=== PATIENT | male | born 1945 | race Caucasian/White ===

== ENCOUNTER → 2018-01-24 | Outpatient (REF) | payer OTHER ==
[2018-01-24 14:07] LABS: APPEARANCE, URINE CLEAR (CLEAR); BACTERIA, URINE AUTO 1+ (NEGATIVE); BILIRUBIN, URINE AUTO NEGATIVE (NEGATIVE); BLOOD, URINE BLOOD NEGATIVE (NEGATIVE); COLOR, URINE YELLOW (YELLOW); GLUCOSE, URINE (UA) AUTO NEGATIVE (NEGATIVE); KETONE, URINE AUTO TRACE mg/dL (NEGATIVE); LEUKOCYTE ESTERASE, URINE AUTO NEGATIVE (NEGATIVE); MUCUS, URINE SMALL (NEGATIVE); NITRITE, URINE AUTO NEGATIVE (NEGATIVE); PROTEIN, URINE AUTO 1+ mg/dL (NEGATIVE); RBC, URINE AUTO 0 /HPF (0-3); SPECIFIC GRAVITY URINE AUTO 1.015 (1.002-1.035); SQUAMOUS EPITHELIAL CELL UR AU 0 /HPF (0-6); WBC, URINE AUTO 1 /HPF (0-3)
== END ==
LOC: M SMT 13:14
DX: R10.30 Lower abdominal pain, unspecified (principal)
CPT/HCPCS: 81001

== ENCOUNTER → 2019-06-13 | Outpatient (CLI) | payer MEDICARE ==
--- NOTE | 2019-06-13 10:04 | REP ---
Clinical: Symptoms related to atherosclerotic disease and intermittent claudication. Technique: Real time delcid scale and color Doppler evaluation of the bilateral lower extremity arterial vasculature using linear high frequency transducer. Findings: Delcid scale and color images demonstrate mild to moderate amounts of mixed atheromatous plaquing without focal stenosis or occlusion identified. Doppler interrogation demonstrates biphasic arterial wave forms bilaterally. Peak systolic velocities (cm/sec) RIGHT LEFT KORIN 0.97 0.90 Common femoral artery 122.2 120.0 Profunda femoris 57.8 70.0 SFA (proximal) 111.3 94.3 SFA (mid) 196.2 138.0 SFA (distal) 100.0 120.0 Popliteal artery 107.0 83.1 LEONELA (prox.) 45.3 67.2 Tibioperoneal trunk 63.9 48.0 BAND CUTTING MACHINE OPERATOR (prox.) 76.0 45.0 BAND CUTTING MACHINE OPERATOR (distal) 50.6 50.0 LEONELA (distal) 47.4 42.6 Impression: Atheromatous changes without obvious areas of stenosis or occlusion. Electronically Signed by Edis Pena MD 06/13/2019 09:56 A
== END ==
LOC: M RAD 08:41
PROVIDERS: ATTEND Physician Assistant
DX: M79.605 Pain in left leg (principal); M79.604 Pain in right leg

== ENCOUNTER → 2022-02-27 | Outpatient (REF) | payer MEDICARE ==
[~2022-02-27] MED LIST: ALBU8.5H INH; AMLO1TAB25 PO; ATOR40TA75 PO; BASA100I SQ; CETI-24 PO; DILT180C70 PO; ECOT81TA5 PO; FERR325T19 PO; FINA5TAB2 PO; FLUTISP INH; LEVO150T7 PO; LISI2.5T9 PO; MAGN400T33 PO; METF-838 PO; METO100T7 PO; OMEP40CA5 PO; POTA1TAB23 PO; TAMS1CAP17 PO; VICT18IN2 SQ
[2022-02-27 19:39] LABS: MALB URINE SIEMENS 14.4 MG/L; MAU/CREAT RATIO 11.8 MCG/MG (0.0-30.0)
== END ==
LOC: M LAB REF 18:46
PROVIDERS: ATTEND Nurse Practitioner Family
DX: E11.65 Type 2 diabetes mellitus with hyperglycemia (principal)

== ENCOUNTER → 2022-03-01 | Outpatient (REF) | payer MEDICARE ==
[2022-03-01 13:38] LABS: APPEARANCE, URINE CLEAR (CLEAR); BACTERIA, URINE AUTO 1+ (NEGATIVE); BILIRUBIN, URINE AUTO NEGATIVE (NEGATIVE); BLOOD, URINE BLOOD NEGATIVE (NEGATIVE); COLOR, URINE YELLOW (YELLOW); GLUCOSE, URINE (UA) AUTO NEGATIVE (NEGATIVE); KETONE, URINE AUTO NEGATIVE (NEGATIVE); LEUKOCYTE ESTERASE, URINE AUTO NEGATIVE (NEGATIVE); MUCUS, URINE SMALL (NEGATIVE); NITRITE, URINE AUTO NEGATIVE (NEGATIVE); PROTEIN, URINE AUTO NEGATIVE (NEGATIVE); RBC, URINE AUTO 0 /HPF (0-3); SPECIFIC GRAVITY URINE AUTO 1.008 (1.002-1.035); SQUAMOUS EPITHELIAL CELL UR AU 1 /HPF (0-6); UROBILINOGEN, URINE AUTO 0.2 mg/dL (0.0-2.0); WBC, URINE AUTO 0 /HPF (0-3)
== END ==
LOC: M SMT 12:49
PROVIDERS: ATTEND Urology
DX: N40.0 Benign prostatic hyperplasia without lower urinary tract symptoms (principal)
CPT/HCPCS: 51798; 81001; G0463

== ENCOUNTER → 2022-04-11 | Outpatient (REF) | payer MEDICARE ==
[2022-04-11 17:30] LABS: APPEARANCE, URINE CLEAR (CLEAR); BACTERIA, URINE AUTO NEGATIVE (NEGATIVE); BILIRUBIN, URINE AUTO NEGATIVE (NEGATIVE); BLOOD, URINE BLOOD NEGATIVE (NEGATIVE); COLOR, URINE YELLOW (YELLOW); GLUCOSE, URINE (UA) AUTO NEGATIVE (NEGATIVE); KETONE, URINE AUTO NEGATIVE (NEGATIVE); LEUKOCYTE ESTERASE, URINE AUTO NEGATIVE (NEGATIVE); NITRITE, URINE AUTO NEGATIVE (NEGATIVE); PROTEIN, URINE AUTO NEGATIVE (NEGATIVE); RBC, URINE AUTO 0 /HPF (0-3); SPECIFIC GRAVITY URINE AUTO 1.013 (1.002-1.035); SQUAMOUS EPITHELIAL CELL UR AU 0 /HPF (0-6); UROBILINOGEN, URINE AUTO 0.2 mg/dL (0.0-2.0); WBC, URINE AUTO 1 /HPF (0-3)
== END ==
LOC: M SMT 16:44
PROVIDERS: ATTEND Urology
DX: N40.0 Benign prostatic hyperplasia without lower urinary tract symptoms (principal)

== ENCOUNTER → 2022-04-24 | Outpatient (CLI) | payer MEDICARE ==
[~2022-04-24] MED LIST changes: +E-Z-GAS II EFFERVESCENT PACKET (SODIUM BICARB./CITRIC ACID/SIMETHICONE) As Ordered ONE; +E-Z-HD 98% w/w 340GM SUSP BTL As Ordered ONE; +E-Z-PAQUE 96% w/w SUSP 176GM BTL As Ordered ONE
== END ==
LOC: M RAD 08:58
PROVIDERS: ATTEND Physician Assistant
DX: K92.9 Disease of digestive system, unspecified (principal); F17.200 Nicotine dependence, unspecified, uncomplicated; K21.9 Gastro-esophageal reflux disease without esophagitis

== ENCOUNTER → 2022-05-23 | Outpatient (CLI) | payer MEDICARE ==
[~2022-05-23] MED LIST changes: -E-Z-GAS II EFFERVESCENT PACKET (SODIUM BICARB./CITRIC ACID/SIMETHICONE) As Ordered ONE; -E-Z-HD 98% w/w 340GM SUSP BTL As Ordered ONE; -E-Z-PAQUE 96% w/w SUSP 176GM BTL As Ordered ONE
== END ==
LOC: M RAD 09:06
PROVIDERS: ATTEND Physician Assistant
DX: M89.9 Disorder of bone, unspecified (principal); E83.42 Hypomagnesemia
CPT/HCPCS: 78306; A9503

== ENCOUNTER → 2023-02-28 | Outpatient (REF) | payer MEDICARE ==
[~2023-02-28] MED LIST changes: +FLUT50SP17 INH; -FLUTISP INH
[2023-02-28 18:23] LABS: CREATININE, URINE 24.7 MG/DL; MALB URINE SIEMENS < 3.0 MG/L; MAU/CREAT RATIO 12.1 MCG/MG (0.0-30.0)
== END ==
LOC: M LAB REF 16:49
PROVIDERS: ATTEND Nurse Practitioner Family
DX: E11.65 Type 2 diabetes mellitus with hyperglycemia (principal)

== ENCOUNTER 2024-02-04 18:19 | Inpatient (IN) | payer MEDICARE ==
[~2024-02-04] VITALS: Ht 167.6 cm; Wt 77.4 kg
[~2024-02-04 18:19] MED LIST changes: -FLUT50SP17 INH; +FLUTISP INH; +VICT18IN2 SC; -VICT18IN2 SQ
[2024-02-04 22:15] VITALS: BP 280/104; TEMP 97.6; O2SAT 92
[2024-02-04 23:15] VITALS: BP 208/79
[2024-02-05] VITALS (8 sets, daily range): BP systolic 150–280; BP diastolic 68–107; TEMP 97.2–97.9; O2SAT 91–96
[2024-02-05] MEDS ORDERED: DEXTROSE 50% 50ML SYRINGE IV PRN (00:05)
[2024-02-05] MEDS ORDERED: GLUCOSE 4GM CHEW TABLET PO PRN (00:05)
[2024-02-05] MEDS ORDERED: GLUCAGON INJ 1MG VIAL SC PRN (00:05)
[2024-02-05] MEDS: INSULIN LISPRO (NovoLOG) PER UNIT SC SCH ×2 (00:24→08:54)
[2024-02-05] MEDS ORDERED: IPRATROPIUM 0.5MG/ALBUTEROL 2.5MG INH SOL UD 3ML (DUONEB) NEB PRN (00:55)
[2024-02-05 01:31] LABS: ABG BASE EXCESS 2.5 (-2.0-2.0); ABG HCO3 25.8 MMOL/L (22.0-26.0); ABG STANDARD HCO3 26.6 MMOL/L. (22.0-26.0); ABG pH (ARTERIAL) 7.474 UNITS (7.350-7.450)
[2024-02-05] MEDS: IPRATROPIUM 0.5MG/ALBUTEROL 2.5MG INH SOL UD 3ML (DUONEB) NEB SCH (02:00)
[2024-02-05] MEDS ORDERED: PILL CUTTER 1 EACH XX PRN (02:15)
[2024-02-05] MEDS: LABETALOL 100MG TAB PO STA (02:24)
[2024-02-05] MEDS: **hydrALAZINE HCL** 25 MG TAB PO STA (04:48)
[2024-02-05] MEDS ORDERED: VITA100093 PO (06:54)
[2024-02-05] MEDS ORDERED: ASPI-615 PO (06:54)
[2024-02-05] MEDS ORDERED: POTA-150 PO (06:54)
[2024-02-05] MEDS ORDERED: MAGN1TAB26 PO (06:54)
[2024-02-05] MEDS ORDERED: OYST500T92 PO (06:54)
[2024-02-05] MEDS ORDERED: DILT0.05 PO (06:54)
[2024-02-05] MEDS ORDERED: FAMO20TA PO (06:54)
[2024-02-05] MEDS ORDERED: VITA-172 PO (06:54)
[2024-02-05] MEDS ORDERED: NYST-13 EXT (06:54)
[2024-02-05] MEDS ORDERED: FLOM0.4C39 PO (06:54)
[2024-02-05] MEDS ORDERED: FURO20TA2 PO (06:54)
[2024-02-05] MEDS ORDERED: METF-839 PO (06:54)
[2024-02-05] MEDS ORDERED: HOME MED LIST COMPLETE! XX SCH (06:55)
[2024-02-05 08:41] LABS: BLOOD UREA NITROGEN 16 MG/DL (9-23); CALCIUM LEVEL 9.3 MG/DL (8.3-10.6); CARBON DIOXIDE LEVEL 28 MMOL/L (20-31); CHLORIDE LEVEL 100 MMOL/L (98-107); CREATININE FOR GFR 0.75 MG/DL (0.70-1.30); GLOMERULAR FILTRATION RATE > 60.0 (>42); GLUCOSE, FASTING 118 MG/DL (74-106); POTASSIUM SERUM 3.5 MMOL/L (3.5-5.1); SODIUM LEVEL 134 MMOL/L (136-145)
[2024-02-05] MEDS: HEPARIN SOD (PORCINE) 5000UNITS/ML 1ML VIAL/SYRINGE SC SCH (08:54)
[2024-02-05] MEDS: NICOTINE 21MG/24HR 1 EA TRANSDERMAL TD SCH (08:55)
[2024-02-05] MEDS: ATORVASTATIN 20 MG TAB PO SCH (11:52)
[2024-02-05] MEDS: ASPIRIN 81MG ENTERIC TABLET PO SCH (11:52)
[2024-02-05] MEDS: METOPROLOL SUCC (TopROL XL) 100MG *XL* TAB PO SCH (11:53)
[2024-02-05] MEDS: FUROSEMIDE 100MG/10ML VIAL IV ONE (11:53)
[2024-02-05] MEDS: FINASTERIDE 5MG TAB PO SCH (11:57)
[2024-02-05] MEDS: LISINOPRIL *2.5 MG* TAB PO SCH (14:04)
[2024-02-05] MEDS: LORazepam 2 MG/ML 1ML VIAL IV ONE (14:05)
[2024-02-05] MEDS: **hydrALAZINE HCL** 25 MG TAB PO SCH (14:05)
[2024-02-05 17:23] LABS: CHOLESTEROL LEVEL 120 MG/DL (<200); CHOLESTEROL RISK RATIO 3.56 (<5); HDL CHOLESTEROL 33.7 MG/DL (>40); LDL CHOLESTEROL 62.5 MG/DL (<100); NON-HDL-C 86.3 MG/DL; TRIGLYCERIDES LEVEL 119 MG/DL (<150)
[2024-02-05 17:42] LABS: HEMOGLOBIN A1c 6.1 % (4.0-6.0)
[2024-02-05] MEDS: TAMSULOSIN 0.4 MG CAP PO SCH (21:44)
[2024-02-05] MEDS: dilTIAZem **CD** 180MG CAP PO SCH (21:45)
[2024-02-05] MEDS: APIXABAN 5 MG TAB (ELIQUIS) PO SCH (21:45)
[2024-02-05] MEDS: NYSTATIN 100,000 UNITS/GM TOPICAL PWD 15GM TOP SCH (21:45)
[2024-02-05] MEDS: FAMOTIDINE 20 MG TAB PO SCH (21:45)
[2024-02-05] MEDS: LEVEMIR (INSULIN DETEMIR) 1 UNITS/0.01ML SC SCH (21:51)
[2024-02-06] VITALS (7 sets, daily range): BP systolic 119–218; BP diastolic 50–90; TEMP 97.2–98.4; O2SAT 93–98
[2024-02-06] MEDS ORDERED: ELIQ5TAB PO (11:09)
[2024-02-06] MEDS ORDERED: NICO21PAT TD (11:10)
[2024-02-06] MEDS ORDERED: LISI10TA22 PO (11:12)
[2024-02-06 14:12] LABS: BASO # 0.1 10^3/uL (0.0-0.2); BASO % 0.9 % (0.0-1.0); EOS # 0.5 10^3/uL (0.0-0.5); EOS % 3.1 % (0.0-3.0); HEMATOCRIT 43.4 % (42.0-52.0); HEMOGLOBIN 14.4 g/dl (13.5-17.5); LYMPH # 2.5 10^3/uL (1.5-5.0); LYMPH % 16.5 % (24.0-44.0); MEAN CORPUSCULAR HEMOGLOBIN 29.6 pg (27.0-33.0); MEAN CORPUSCULAR HGB CONC 33.2 g/dl (32.0-36.5); MEAN CORPUSCULAR VOLUME 89.3 fl (80.0-96.0); MONO # 1.4 10^3/uL (0.0-0.8); NEUTROPHILS # 10.6 10^3/uL (1.5-8.5); NEUTROPHILS % 69.8 % (36.0-66.0); PLATELET COUNT, AUTOMATED 487 10^3/uL (150-450); RED BLOOD COUNT 4.86 10^6/uL (4.30-6.10); WHITE BLOOD COUNT 15.2 10^3/uL (4.0-10.0)
[2024-02-06 14:20] LABS: ERYTHROCYTE SEDIMENTATION RATE 11 mm/hr (0-20)
[2024-02-06 14:39] LABS: C REACTIVE PROTEIN QUANTITATIV 0.5 MG/DL (<1.0)
[2024-02-06 14:48] LABS: PROCALCITONIN 0.06 ng/ml
[2024-02-07] VITALS (8 sets, daily range): BP systolic 134–242; BP diastolic 52–90; TEMP 97–97.8; O2SAT 92–100
[2024-02-07 13:41] LABS: BASO # 0.1 10^3/uL (0.0-0.2); BASO % 0.9 % (0.0-1.0); EOS # 0.3 10^3/uL (0.0-0.5); EOS % 2.1 % (0.0-3.0); HEMATOCRIT 42.8 % (42.0-52.0); HEMOGLOBIN 14.2 g/dl (13.5-17.5); LYMPH # 2.4 10^3/uL (1.5-5.0); LYMPH % 18.2 % (24.0-44.0); MEAN CORPUSCULAR HEMOGLOBIN 29.4 pg (27.0-33.0); MEAN CORPUSCULAR HGB CONC 33.2 g/dl (32.0-36.5); MEAN CORPUSCULAR VOLUME 88.6 fl (80.0-96.0); MONO # 1.2 10^3/uL (0.0-0.8); MONO % 8.7 % (2.0-8.0); NEUTROPHILS # 9.2 10^3/uL (1.5-8.5); NEUTROPHILS % 69.4 % (36.0-66.0); PLATELET COUNT, AUTOMATED 445 10^3/uL (150-450); RED BLOOD COUNT 4.83 10^6/uL (4.30-6.10); WHITE BLOOD COUNT 13.3 10^3/uL (4.0-10.0)
[2024-02-07 13:50] LABS: ERYTHROCYTE SEDIMENTATION RATE 9 mm/hr (0-20)
[2024-02-07 14:08] LABS: C REACTIVE PROTEIN QUANTITATIV < 0.40 MG/DL (<1.0)
[2024-02-07 14:14] LABS: PROCALCITONIN 0.06 ng/ml
[2024-02-07] MEDS: LOSARTAN 25 MG TAB PO SCH (20:41)
[2024-02-07] MEDS: RAMELTEON 8 MG TAB (ROZEREM) PO STA (20:41)
[2024-02-07] MEDS: diphenhydrAMINE 25MG CAP PO STA (20:42)
[2024-02-08 04:06] VITALS: BP 107/51; TEMP 97; O2SAT 94
[2024-02-08 08:16] VITALS: BP 142/64; TEMP 97.2; O2SAT 94
[2024-02-08 08:26] VITALS: BP 142/64
[2024-02-08] MEDS ORDERED: LOSA25TA13 PO (13:21)
[2024-02-08] MEDS ORDERED: ELIQ5TAB PO (13:57)
[2024-02-08] MEDS ORDERED: NICO21PAT TD (13:57)
== END 2024-02-08 13:57 | disposition home or self-care (01) | DRG 56 ==
LOC: M MS5PR 23:04 → M PCU 02-07 08:36
PROVIDERS: ADMIT Internal Medicine; ATTEND General Practice
PROC: B246ZZZ Ultrasonography of Right and Left Heart (ICD-10-PCS; principal; 2024-02-06)
DX: G31.09 Other frontotemporal neurocognitive disorder (principal); I63.81 Other cerebral infarction due to occlusion or stenosis of small artery; J44.1 Chronic obstructive pulmonary disease with (acute) exacerbation; Z66 Do not resuscitate; I48.0 Paroxysmal atrial fibrillation; E78.5 Hyperlipidemia, unspecified; I10 Essential (primary) hypertension; D48.19 Other specified neoplasm of uncertain behavior of connective and other soft tissue; F02.80 Dementia in other diseases classified elsewhere, unspecified severity, without behavioral disturbance, psychotic disturbance, mood disturbance, and anxiety; I16.0 Hypertensive urgency; E11.9 Type 2 diabetes mellitus without complications; D64.9 Anemia, unspecified; E03.9 Hypothyroidism, unspecified; R44.1 Visual hallucinations; N40.0 Benign prostatic hyperplasia without lower urinary tract symptoms; H26.9 Unspecified cataract; F17.210 Nicotine dependence, cigarettes, uncomplicated; Z71.6 Tobacco abuse counseling; Z79.82 Long term (current) use of aspirin; Z79.4 Long term (current) use of insulin; Z79.890 Hormone replacement therapy; Z79.84 Long term (current) use of oral hypoglycemic drugs; Z79.899 Other long term (current) drug therapy

== ENCOUNTER 2024-04-18 13:12 | Emergency (ER) | payer MEDICARE ==
[~2024-04-18] VITALS: Ht 167.6 cm; Wt 80.0 kg
[~2024-04-18 13:12] MED LIST changes: +ASPI-615 PO; +DILT0.05 PO; +ELIQ5TAB PO; +FAMO20TA PO; +FLOM0.4C39 PO; +FURO20TA2 PO; +LISI10TA22 PO; +LOSA25TA13 PO; +MAGN1TAB26 PO; +METF-839 PO; +NICO21PAT TD; +NYST-13 EXT; +OYST500T92 PO; +POTA-150 PO; +VITA-172 PO; +VITA100093 PO
[2024-04-18 13:56] LABS: BASO # 0.1 10^3/uL (0.0-0.2); BASO % 0.9 % (0.0-1.0); EOS # 0.4 10^3/uL (0.0-0.5); EOS % 2.6 % (0.0-3.0); HEMATOCRIT 31.9 % (42.0-52.0); HEMOGLOBIN 10.7 g/dl (13.5-17.5); LYMPH # 1.5 10^3/uL (1.5-5.0); LYMPH % 10.9 % (24.0-44.0); MEAN CORPUSCULAR HEMOGLOBIN 30.3 pg (27.0-33.0); MEAN CORPUSCULAR HGB CONC 33.5 g/dl (32.0-36.5); MEAN CORPUSCULAR VOLUME 90.4 fl (80.0-96.0); MONO # 1.7 10^3/uL (0.0-0.8); MONO % 12.3 % (2.0-8.0); NEUTROPHILS # 9.9 10^3/uL (1.5-8.5); PLATELET COUNT, AUTOMATED 586 10^3/uL (150-450); RED BLOOD COUNT 3.53 10^6/uL (4.30-6.10)
[2024-04-18 14:15] LABS: CK-MB VALUE MASS 1.7 NG/ML (<3.6)
[2024-04-18 14:18] LABS: BLOOD UREA NITROGEN 15 MG/DL (9-23); CALCIUM LEVEL 9.2 MG/DL (8.3-10.6); CARBON DIOXIDE LEVEL 25 MMOL/L (20-31); CHLORIDE LEVEL 92 MMOL/L (98-107); CREATININE FOR GFR 0.96 MG/DL (0.70-1.30); GLOMERULAR FILTRATION RATE > 60.0 (>35); GLUCOSE, FASTING 199 MG/DL (74-106); POTASSIUM SERUM 5.4 MMOL/L (3.5-5.1); SODIUM LEVEL 126 MMOL/L (136-145)
[2024-04-18 14:20] LABS: CPK CREATINE PHOSPHOKINASE 51 U/L (46-171); MB/CK RELATIVE INDEX 3.33 (< OR =4)
[2024-04-18 15:31] LABS: CK-MB VALUE MASS 2.1 NG/ML (<3.6)
[2024-04-18 15:36] LABS: MB/CK RELATIVE INDEX 4.88 (< OR =4)
[2024-04-18 17:08] LABS: CK-MB VALUE MASS 2.9 NG/ML (<3.6)
[2024-04-18 17:23] LABS: MB/CK RELATIVE INDEX 6.3 (< OR =4)
[2024-04-18 18:45] VITALS: BP 182/88
[2024-04-18] MEDS ORDERED: AMLO1TAB24 PO (18:45)
[2024-04-18 18:46] VITALS: O2SAT 95
[2024-04-18 18:47] VITALS: BP 182/88
[2024-04-18] MEDS: amLODIPine 5 MG TAB PO ONE (18:47)
[2024-04-18 18:50] VITALS: TEMP 96.7
== END 2024-04-18 18:57 | disposition home or self-care (01) ==
LOC: M ED 13:12
DX: R00.1 Bradycardia, unspecified (principal); J90 Pleural effusion, not elsewhere classified; I48.91 Unspecified atrial fibrillation; I25.10 Atherosclerotic heart disease of native coronary artery without angina pectoris; I10 Essential (primary) hypertension; E78.5 Hyperlipidemia, unspecified; K21.9 Gastro-esophageal reflux disease without esophagitis; J44.9 Chronic obstructive pulmonary disease, unspecified; Z86.73 Personal history of transient ischemic attack (TIA), and cerebral infarction without residual deficits; Z95.1 Presence of aortocoronary bypass graft; Z79.4 Long term (current) use of insulin; Z79.899 Other long term (current) drug therapy

== ENCOUNTER 2024-06-09 19:22 | Emergency (ER) | payer MEDICARE ==
[~2024-06-09] VITALS: Ht 167.6 cm; Wt 73.8 kg
[~2024-06-09 19:22] MED LIST changes: +AMLO1TAB24 PO
[2024-06-09 20:45] LABS: BASO # 0.2 10^3/uL (0.0-0.2); BASO % 0.8 % (0.0-1.0); EOS # 0.3 10^3/uL (0.0-0.5); EOS % 1.7 % (0.0-3.0); HEMATOCRIT 41.8 % (42.0-52.0); HEMOGLOBIN 13.3 g/dl (13.5-17.5); LYMPH # 2.4 10^3/uL (1.5-5.0); LYMPH % 13.1 % (24.0-44.0); MEAN CORPUSCULAR HEMOGLOBIN 27.8 pg (27.0-33.0); MEAN CORPUSCULAR HGB CONC 31.8 g/dl (32.0-36.5); MEAN CORPUSCULAR VOLUME 87.4 fl (80.0-96.0); MONO # 1.8 10^3/uL (0.0-0.8); MONO % 9.7 % (2.0-8.0); NEUTROPHILS # 13.2 10^3/uL (1.5-8.5); NEUTROPHILS % 72.3 % (36.0-66.0); PLATELET COUNT, AUTOMATED 531 10^3/uL (150-450); RED BLOOD COUNT 4.78 10^6/uL (4.30-6.10); WHITE BLOOD COUNT 18.3 10^3/uL (4.0-10.0)
[2024-06-09 21:00] VITALS: BP 186/82
[2024-06-09] MEDS: NITROGLYCERIN 2% OINT 1 GM *U/D* PKT TOP ONE (21:00)
[2024-06-09] MEDS: NS 500 ML IV ONE (21:06)
[2024-06-09 21:53] LABS: LIPASE 21 U/L (12-53)
[2024-06-09 21:55] LABS: CPK CREATINE PHOSPHOKINASE 26 U/L (46-171)
[2024-06-09 21:57] LABS: ALBUMIN 3.3 G/DL (3.2-5.2); ALKALINE PHOSPHATASE 102 U/L (46-116); ALT/SGPT 26 U/L (7.0-40); AST/SGOT < 8 U/L (<34); BILIRUBIN,DIRECT 0.2 MG/DL (<0.4); BILIRUBIN,TOTAL 0.7 MG/DL (0.3-1.2); BLOOD UREA NITROGEN 17 MG/DL (9-23); CALCIUM LEVEL 9.2 MG/DL (8.3-10.6); CARBON DIOXIDE LEVEL 30 MMOL/L (20-31); CHLORIDE LEVEL 101 MMOL/L (98-107); CK-MB VALUE MASS < 1.0 NG/ML (<3.6); CREATININE FOR GFR 0.87 MG/DL (0.70-1.30); GLOMERULAR FILTRATION RATE > 60.0 (>35); GLUCOSE, FASTING 171 MG/DL (74-106); MB/CK RELATIVE INDEX 3.84 (< OR =4); SODIUM LEVEL 137 MMOL/L (136-145); TOTAL PROTEIN 5.9 G/DL (5.7-8.2)
[2024-06-09] MEDS ORDERED: ISOVUE-370 76% 100ML VIAL As Ordered ONE (22:00)
[2024-06-09] MEDS ORDERED: LOSARTAN 25 MG TAB PO ONE (22:30)
[2024-06-09] MEDS ORDERED: hydrALAZINE 20MG/ML 1ML VIAL IV ONE (22:45)
[2024-06-09 23:34] LABS: CK-MB VALUE MASS < 1.0 NG/ML (<3.6)
[2024-06-09 23:36] LABS: CPK CREATINE PHOSPHOKINASE 28 U/L (46-171); MB/CK RELATIVE INDEX 3.57 (< OR =4)
[2024-06-10] MEDS ORDERED: ONDA-282 PO (01:01)
[2024-06-10 01:09] VITALS: BP 164/79; TEMP 98.4; O2SAT 96
== END 2024-06-10 01:27 | disposition home or self-care (01) ==
LOC: M ED 19:22
DX: E27.8 Other specified disorders of adrenal gland (principal); I25.10 Atherosclerotic heart disease of native coronary artery without angina pectoris; E11.9 Type 2 diabetes mellitus without complications; Z79.4 Long term (current) use of insulin; Z79.899 Other long term (current) drug therapy
CPT/HCPCS: 71045; 74177; 80048; 80076; 81001; 82550; 82553; 83690; 84484; 85025; 86140; 87486; 87581; 87633; 87798; 93005; 93041; 94760; 96360; 99284; Q9967

== ENCOUNTER 2024-11-19 10:16 | Day surgery (SDC) | payer MEDICARE ==
[~2024-11-19] VITALS: Ht 167.6 cm; Wt 80.6 kg
[~2024-11-19 10:16] MED LIST changes: +ESOM20CA25 PO; +LEVO200T4 PO; +LOSA50TA28 PO; +METO1TAB33 PO; +ONDA-282 PO; +PHENYLEPHRINE 10% OPHTH SOL 5ML OS PRN; +TIRZ2.5P SC
[2024-11-19] MEDS: PHENYLEPHRINE 2.5% OPHTH SOL 2ML OS SCH (11:53)
[2024-11-19] MEDS: TROPICAMIDE 1% OPHTH SOLN 15ML OS SCH (11:53)
[2024-11-19] MEDS: OFLOXACIN 0.3 % (OCUFLOX) OPTH SOL 5ML OS ONE (11:53)
[2024-11-19] MEDS: LIDOCAINE 3.5 % 1ML OPHTH TOPICAL GEL OU ONE (11:53)
[2024-11-19] MEDS: CYCLOPENTOLATE 1% OPHTH SOLN 2ML BTL OS SCH (11:53)
[2024-11-19] MEDS ORDERED: fentaNYL 100 MCG/2 ML INJECTION As Ordered ONE (12:33)
[2024-11-19] MEDS ORDERED: MIDAZOLAM INJ 2MG/2ML VIAL As Ordered ONE (12:33)
[2024-11-19] MEDS: INSULIN LISPRO (NovoLOG) PER UNIT SC PRN (12:34)
[2024-11-19] MEDS ORDERED: hydrALAZINE 20MG/ML 1ML VIAL As Ordered ONE (13:17)
[2024-11-19] MEDS: LIDOCAINE 1% SDV 5ML VIAL As Ordered ONE (13:17)
[2024-11-19] MEDS: CEFUROXIME 1MG/0.1ML INTRACAMERAL INJ As Ordered ONE (13:18)
[2024-11-19] MEDS: BSS IRRIG/VANCO(10MG)/TOBRA(5MG)/EPINEPH(1:1000-0.5CC)500ML BAG-ORONLY As Ordered ONE (13:18)
[2024-11-19 13:30] VITALS: BP 141/66; TEMP 97.3; O2SAT 95
== END 2024-11-19 13:52 | disposition home or self-care (01) ==
LOC: M SDC 10:16
PROVIDERS: ATTEND Ophthalmology
DX: E11.36 Type 2 diabetes mellitus with diabetic cataract (principal); H25.12 Age-related nuclear cataract, left eye; H57.03 Miosis; I10 Essential (primary) hypertension; I48.0 Paroxysmal atrial fibrillation; E78.00 Pure hypercholesterolemia, unspecified; E03.9 Hypothyroidism, unspecified; J44.9 Chronic obstructive pulmonary disease, unspecified; N40.0 Benign prostatic hyperplasia without lower urinary tract symptoms; K21.9 Gastro-esophageal reflux disease without esophagitis; Z79.01 Long term (current) use of anticoagulants; Z79.899 Other long term (current) drug therapy; Z79.4 Long term (current) use of insulin; Z79.890 Hormone replacement therapy; Z79.85 Long-term (current) use of injectable non-insulin antidiabetic drugs; Z79.84 Long term (current) use of oral hypoglycemic drugs; Z86.73 Personal history of transient ischemic attack (TIA), and cerebral infarction without residual deficits; F17.210 Nicotine dependence, cigarettes, uncomplicated; Z95.1 Presence of aortocoronary bypass graft
CPT/HCPCS: 66982; J0360; J0697; J1815; J2250; J3010; V2632

== ENCOUNTER 2024-12-19 17:15 | Emergency (ER) | payer MEDICARE ==
[~2024-12-19] VITALS: Ht 167.6 cm; Wt 78.2 kg
[~2024-12-19 17:15] MED LIST changes: -PHENYLEPHRINE 10% OPHTH SOL 5ML OS PRN
[2024-12-19 19:37] LABS: BASO # 0.2 10^3/uL (0.0-0.2); BASO % 1.3 % (0.0-1.0); EOS # 0.3 10^3/uL (0.0-0.5); EOS % 2.4 % (0.0-3.0); HEMATOCRIT 44.6 % (42.0-52.0); HEMOGLOBIN 14.7 g/dl (13.5-17.5); LYMPH # 2.2 10^3/uL (1.5-5.0); LYMPH % 17.8 % (24.0-44.0); MEAN CORPUSCULAR HEMOGLOBIN 28.3 pg (27.0-33.0); MEAN CORPUSCULAR VOLUME 85.9 fl (80.0-96.0); MONO # 0.9 10^3/uL (0.0-0.8); MONO % 7.3 % (2.0-8.0); NEUTROPHILS # 8.6 10^3/uL (1.5-8.5); NEUTROPHILS % 70.4 % (36.0-66.0); PLATELET COUNT, AUTOMATED 433 10^3/uL (150-450); RED BLOOD COUNT 5.19 10^6/uL (4.30-6.10); WHITE BLOOD COUNT 12.3 10^3/uL (4.0-10.0)
[2024-12-19 19:58] LABS: CPK CREATINE PHOSPHOKINASE 45 U/L (46-171)
[2024-12-19 19:59] LABS: ALKALINE PHOSPHATASE 109 U/L (40-129); ALT/SGPT 14 U/L (7.0-40); AST/SGOT < 8 U/L (<34); BILIRUBIN,DIRECT 0.2 MG/DL (<0.4); BILIRUBIN,TOTAL 0.7 MG/DL (0.3-1.2); BLOOD UREA NITROGEN 20 MG/DL (9-23); CARBON DIOXIDE LEVEL 28 MMOL/L (20-31); CHLORIDE LEVEL 97 MMOL/L (98-107); CK-MB VALUE MASS 1.3 NG/ML (<3.6); CREATININE FOR GFR 0.87 MG/DL (0.70-1.30); GLOMERULAR FILTRATION RATE > 60.0 (>35); GLUCOSE, FASTING 394 MG/DL (74-106); MB/CK RELATIVE INDEX 2.88 (< OR =4); POTASSIUM SERUM 4.7 MMOL/L (3.5-5.1); SODIUM LEVEL 136 MMOL/L (136-145); TOTAL PROTEIN 7.6 G/DL (5.7-8.2)
[2024-12-19] MEDS ORDERED: ASPI81CH33 PO (20:25)
[2024-12-19] MEDS ORDERED: BASA100I SC (20:27)
[2024-12-19] MEDS ORDERED: IBUP200C33 PO (20:29)
[2024-12-19] MEDS ORDERED: LASI40TA9 PO ×2 (20:30→23:07)
[2024-12-19] MEDS ORDERED: LEVO112T2 PO (20:32)
[2024-12-19] MEDS ORDERED: ESSE250T PO (20:32)
[2024-12-19] MEDS: hydrALAZINE 20MG/ML 1ML VIAL IV ONE (20:56)
[2024-12-19 21:17] LABS: CK-MB VALUE MASS 2.1 NG/ML (<3.6)
[2024-12-19 21:18] LABS: MB/CK RELATIVE INDEX 5.38 (< OR =4)
[2024-12-19] MEDS: FUROSEMIDE 40MG/4ML VIAL IV ONE (21:19)
[2024-12-19 23:45] VITALS: BP 180/81; TEMP 98; O2SAT 95
== END 2024-12-19 23:45 | disposition home or self-care (01) ==
LOC: M ED 17:15
DX: I11.0 Hypertensive heart disease with heart failure (principal); I48.91 Unspecified atrial fibrillation; E11.9 Type 2 diabetes mellitus without complications; E78.5 Hyperlipidemia, unspecified; E03.9 Hypothyroidism, unspecified; F17.200 Nicotine dependence, unspecified, uncomplicated; Z79.01 Long term (current) use of anticoagulants; Z79.4 Long term (current) use of insulin; Z79.899 Other long term (current) drug therapy
CPT/HCPCS: 71045; 80048; 80076; 82550; 82553; 83880; 84484; 85025; 87486; 87581; 87633; 87798; 93005; 93041; 94760; 96374; 96375; 99285; J0360; J1940

== ENCOUNTER 2025-02-18 07:48 | Day surgery (SDC) | payer MEDICARE ==
[~2025-02-18] VITALS: Ht 167.6 cm; Wt 78.7 kg
[2025-02-18] MEDS: LIDOCAINE 1% SDV 5ML VIAL As Ordered ONE (06:51)
[~2025-02-18 07:48] MED LIST changes: +ASPI81CH33 PO; +BASA100I SC; +ESSE250T PO; +IBUP200C33 PO; +LASI40TA9 PO; +LEVO112T2 PO; +LEVO175T2 PO; +PHENYLEPHRINE 10% OPHTH SOL 5ML OD PRN
[2025-02-18] MEDS: CYCLOPENTOLATE 1% OPHTH SOLN 2ML BTL OD SCH (08:56)
[2025-02-18] MEDS: LIDOCAINE 3.5 % 1ML OPHTH TOPICAL GEL OU ONE (08:56)
[2025-02-18] MEDS: OFLOXACIN 0.3 % (OCUFLOX) OPTH SOL 5ML OD ONE (08:56)
[2025-02-18] MEDS: PHENYLEPHRINE 2.5% OPHTH SOL 2ML OD SCH (08:56)
[2025-02-18] MEDS: TROPICAMIDE 1% OPHTH SOLN 15ML OD SCH (08:57)
[2025-02-18] MEDS ORDERED: MIDAZOLAM INJ 2MG/2ML VIAL As Ordered ONE (10:09)
[2025-02-18] MEDS ORDERED: fentaNYL 100 MCG/2 ML INJECTION As Ordered ONE (10:09)
[2025-02-18] MEDS: POVIDONE-IODINE 5% OPHTH PREP SOL 30ML As Ordered ONE (10:24)
[2025-02-18] MEDS: BSS IRRIG/VANCO(10MG)/TOBRA(5MG)/EPINEPH(1:1000-0.5CC)500ML BAG-ORONLY As Ordered ONE (10:30)
[2025-02-18] MEDS: CEFUROXIME 1MG/0.1ML INTRACAMERAL INJ As Ordered ONE (10:30)
[2025-02-18 10:45] VITALS: BP 141/60; TEMP 97.3; O2SAT 94
== END 2025-02-18 11:05 | disposition home or self-care (01) ==
LOC: M SDC 07:48
PROVIDERS: ATTEND Ophthalmology
DX: E11.36 Type 2 diabetes mellitus with diabetic cataract (principal); H25.11 Age-related nuclear cataract, right eye; I10 Essential (primary) hypertension; I48.91 Unspecified atrial fibrillation; J44.9 Chronic obstructive pulmonary disease, unspecified; E03.9 Hypothyroidism, unspecified; E78.00 Pure hypercholesterolemia, unspecified; K21.9 Gastro-esophageal reflux disease without esophagitis; Z86.73 Personal history of transient ischemic attack (TIA), and cerebral infarction without residual deficits; N40.0 Benign prostatic hyperplasia without lower urinary tract symptoms; Z79.899 Other long term (current) drug therapy; Z79.82 Long term (current) use of aspirin; Z79.85 Long-term (current) use of injectable non-insulin antidiabetic drugs; Z79.4 Long term (current) use of insulin; Z79.890 Hormone replacement therapy; Z79.84 Long term (current) use of oral hypoglycemic drugs; F17.210 Nicotine dependence, cigarettes, uncomplicated; Z95.5 Presence of coronary angioplasty implant and graft
CPT/HCPCS: 66984; J0697; J2250; J3010; V2632